=== PATIENT | female | born 1970 ===

== ENCOUNTER → 2017-04-25 | Outpatient (CLI) | payer BC ==
--- NOTE | 2017-05-01 11:50 | CODING QUERY NO DIAGNOSIS ---
TREATMENT RENDERED WITHOUT A DIAGNOSIS To promote full compliance with coding requirements relating to patient care, physician participation is requested in all cases of airport baggage screener uncertainty. Please assist us with providing a diagnosis/symptom for the test(s) below: A diagnosis/symptom was not documented on your Order. A valid diagnosis/symptom is required to bill all insurances. Please remember that we are unable to code a diagnosis of rule out, probable, possible, questionable, or suspected. Tests that require a diagnosis: DOS: 04/25/17 * AERO/ANAE CULTURE & GRAM STAIN LEFT LITTLE FINGER DIAGNOSIS: Provider Signature: Date: Thank you [facility]ilyn [facility] Information Management Once completed, please kindly fax back to [phone] For questions please call [phone]
== END | disposition home or self-care (01) ==
LOC: C.LABSPEC 16:45
PROVIDERS: ATTEND Orthopaedic Surgery
DX: S66.529A Laceration of intrinsic muscle, fascia and tendon of unspecified finger at wrist and hand level, initial encounter (principal); X58.XXXA Exposure to other specified factors, initial encounter